=== PATIENT | male | born 1975 | race Caucasian/White ===

== ENCOUNTER 2020-05-20 11:58 | Emergency (ER) | payer BC ==
[2020-05-20 14:29] LABS: HEMOGLOBIN 16.6 gm/dl (14.0-17.5); RED BLOOD COUNT 5.22 M/UL (4.20-5.50); WHITE BLOOD COUNT 7.9 K/UL (4.5-11.0)
[2020-05-20 14:53] LABS: BUN/CREATININE RATIO 19 (0-10)
[2020-05-20] MEDS ORDERED: ANTIVERT 12.512.5 MG PO (17:56)
[2020-05-20] MEDS ORDERED: ZOFRAN4 MG PO (17:56)
== END 2020-05-20 18:26 | disposition home or self-care (01) ==
LOC: ER1 11:58
PROVIDERS: Physician Assistant Medical
DX: R42 Dizziness and giddiness (principal)
CPT/HCPCS: 70450; 80053; 81001; 82550; 82553; 83874; 84484; 85025; 93005; 99284; J7030

== ENCOUNTER → 2020-11-05 | Outpatient (CLI) | payer BC ==
[~2020-11-05] MED LIST: ANTIVERT 12.512.5 MG PO; ZOFRAN4 MG PO
[2020-11-05 13:28] LABS: BUN/CREATININE RATIO 14 (0-10)
== END ==
LOC: LAB 11:58
PROVIDERS: Nurse Practitioner Family
DX: R82.4 Acetonuria (principal); I10 Essential (primary) hypertension; R10.32 Left lower quadrant pain
CPT/HCPCS: 36415; 80053; 81001

== ENCOUNTER → 2021-05-17 | Outpatient (CLI) | payer BC ==
[2021-05-17 06:54] LABS: HEMOGLOBIN 15.3 gm/dl (14.0-17.5); RED BLOOD COUNT 4.85 M/UL (4.20-5.50); WHITE BLOOD COUNT 5.2 K/UL (4.5-11.0)
[2021-05-18 07:11] LABS: A/G RATIO 1.5 (1.2-2.2); ALKALINE PHOSPHATASE, S 86 IU/L (44-121); ALT (SGPT) 22 IU/L (0-44); AST (SGOT) 16 IU/L (0-40); BILIRUBIN, TOTAL 0.3 mg/dL (0.0-1.2); BUN 19 mg/dL (6-24); BUN/CREATININE RATIO 20 (9-20); CARBON DIOXIDE, TOTAL 24 mmol/L (20-29); CHLORIDE, SERUM 105 mmol/L (96-106); CHOLESTEROL, TOTAL 203 mg/dL (100-199); CREATININE, SERUM 0.95 mg/dL (0.76-1.27); EGFR IF AFRICN AM 110 (>59); EGFR IF NONAFRICN AM 95 (>59); GLOBULIN, TOTAL 2.8 g/dL (1.5-4.5); GLUCOSE, SERUM 86 mg/dL (65-99); HDL CHOLESTEROL 58 mg/dL (>39); LDL CHOLESTEROL CALC 126 mg/dL (0-99); LDL/HDL RATIO 2.2 ratio (0.0-3.6); POTASSIUM, SERUM 4.3 mmol/L (3.5-5.2); PROTEIN, TOTAL, SERUM 7.1 g/dL (6.0-8.5); SODIUM, SERUM 144 mmol/L (134-144); T. CHOL/HDL RATIO 3.5 ratio (0.0-5.0); TRIGLYCERIDES 109 mg/dL (0-149); TRIIODOTHYRONINE (T3) 122 ng/dL (71-180)
[2021-05-18 08:15] LABS: VITAMIN D, 25-HYDROXY 13.1 ng/mL (30.0-100.0)
== END ==
LOC: LAB 06:21
PROVIDERS: Nurse Practitioner
DX: I11.0 Hypertensive heart disease with heart failure (principal); I50.9 Heart failure, unspecified; R53.83 Other fatigue; E78.5 Hyperlipidemia, unspecified; E55.9 Vitamin D deficiency, unspecified
CPT/HCPCS: 36415; 80053; 80061; 81001; 84436; 84443; 84480; 85025